=== PATIENT | female | born 1940 | race American Indian/Alaskan Native ===

== ENCOUNTER 2016-10-20 17:13 | Emergency (ER) | payer MEDICARE ==
[2016-10-20 17:25] VITALS: TEMP 98.4; O2SAT 98
--- NOTE | 2016-10-20 17:48 | ED PDOC ---
HPI: Hypertension/Hypotension Time Seen by Provider: 10/20/16 17:24 Chief Complaint (Nursing): High Blood Pressure History Per: Patient History/Exam Limitations: no limitations Onset/Duration Of Symptoms: Days Current Symptoms Are (Timing): Still Present Additional Complaint(s): 75 y/o female presents to the emergency department with a complaint of high blood pressure while at home. Associated with nasal congestion and a blurry vision which has resolved. Reports her blood pressure was 190/83 on both arms this morning and 160/85 by [address] March increased her Valsartan intake from 160 mg to 320 mg a couple of weeks ago while taking metoprolol and amlodipine. Denies chest pain or shortness of breath. PMD: Dr. Toi March MD Past Medical History Reviewed: Historical Data, Nursing Documentation, Vital Signs Vital Signs: Last Vital Signs Temp 98.4 F 10/20/16 17:22 Pulse 86 10/20/16 17:22 Resp 18 10/20/16 17:22 BP 163/81 H 10/20/16 17:22 Pulse Ox 98 10/20/16 17:22 - Medical History PMH: HTN - Family History Family History: States: Unknown Family Hx - Allergies Allergies/Adverse Reactions: Allergies Allergy/AdvReac Type Severity Reaction Status Date / Time No Known Allergies Allergy Unverified 01/30/13 12:08 Review of Systems ROS Statement: Except As Marked, All Systems Reviewed And Found Negative Constitutional: Positive for: Other (high blood pressure) Eyes: Positive for: Vision Change (Blurry) ENT: Positive for: Nose Congestion Cardiovascular: Negative for: Chest Pain Respiratory: Negative for: Shortness of Breath Physical Exam - Reviewed Nursing Documentation Reviewed: Yes Vital Signs Reviewed: Yes - Physical Exam Appears: Positive for: Non-toxic, No Acute Distress Head Exam: Positive for: ATRAUMATIC, NORMAL INSPECTION, NORMOCEPHALIC Skin: Positive for: Normal Color, Warm, Dry Eye Exam: Positive for: Normal appearance, EOMI, PERRL. Negative for: Conjunctival injection Neck: Positive for: Normal, Painless ROM, Supple Cardiovascular/Chest: Positive for: Regular Rate, Rhythm. Negative for: Murmur Respiratory: Positive for: Normal Breath Sounds. 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 Negative for: Motor/Sensory Deficits, Aphasia, Facial Droop - Laboratory Results Result Diagrams: 10/20/16 18:25 10/20/16 18:25 - ECG O2 Sat by Pulse Oximetry: 98 (RA) Pulse Ox Interpretation: Normal Medical Decision Making Medical Decision Making: Time: 17:24 Initial impression: High Blood Pressure Initial plan: --Electrocardiogram Stat --COMP Metabolic Panel --ED urine dipstick (POC) --EKG-ED (EDNURTX) --CBC w/ differential --Chest Two Views (RAD) --Urinalysis Stat --Revaluation Time: 18:45 --Upon discharge, pt states she now has frontal CHRIS, will order Tylenol and CT head. --Head w/o contrast CT --Tylenol 650 mg PO Time: 22:35 -Head CT FINDINGS: Brain: Mild atrophy. No intracranial hemorrhage. No mass. No definite edema. Ventricles: No hydrocephalus. Bones/joints: No acute fracture. Soft tissues: Unremarkable. Vasculature: Atherosclerotic disease of intracranial arteries. Sinuses: No acute sinusitis. Mastoid air cells: Partial opacification/postsurgical changes of LEFT mastoid. Orbits: Unremarkable as visualized. IMPRESSION: 1. No definite acute intracranial abnormality. 2. Incidental/non-acute findings are described above. Scribe Attestation: Documented by Nina Cohen, acting as a scribe for Carmella Peters MD. Provider Scribe Attestation: All medical record entries made by the Scribe were at my direction and personally dictated by me. I have reviewed the chart and agree that the record accurately reflects my personal performance of the history, physical exam, medical decision making, and the department course for this patient. I have also personally directed, reviewed, and agree with the discharge instructions and disposition. Disposition - Clinical Impression Clinical Impression: Hypertension - Patient ED Disposition Is Patient to be Admitted: No - Disposition Disposition: Routine/Home Disposition Time: 18:41 Condition: STABLE Additional Instructions: FOLLOW-UP WITH PMD WITHIN 2 DAYS FOR REEVALUATION. Instructions: Hypertension (ED)
[2016-10-20 18:28] LABS: RBC URINE 4 /hpf (0-3); URINE BACTERIA RARE (<OCC); URINE BILIRUBIN NEGATIVE (NEGATIVE); URINE COLOR YELLOW (YELLOW); URINE GLUCOSE (UA) NEG (Normal); URINE KETONE NEGATIVE (NEGATIVE); URINE LEUKOCYTE ESTERASE TRACE Leu/uL (Negative); URINE PROTEIN 100 mg/dL (NEGATIVE); URINE UROBILINOGEN 0.2-1.0 mg/dL (0.2-1.0); WBC URINE 4 /hpf (0-5)
[2016-10-20 18:29] LABS: URINE BLOOD SMALL (NEGATIVE)
[2016-10-20 18:29] LABS: BASO # 0.1 K/uL (0.0-0.2); BASO % 0.8 % (0.0-2.0); EOS # 0.1 K/uL (0.0-0.7); EOS % 0.9 % (0.0-4.0); HEMATOCRIT 39.6 % (34.0-47.0); LYMPH # 2.3 K/uL (1.0-4.3); LYMPH % 18.9 % (20.0-40.0); MEAN CELL VOLUME 77.2 fl (81.0-99.0); MEAN CORPUSCULAR HEMOGLOBIN 23.5 pg (27.0-31.0); MEAN CORPUSCULAR HGB CONC 30.5 g/dL (33.0-37.0); MONO # 1.1 K/uL (0.0-0.8); MONO % 9.2 % (0.0-10.0); NEUT # 8.6 K/uL (1.8-7.0); NEUT % 70.2 % (50.0-75.0); NRBC % 0.1 % (0.0-0.0); RED CELL DISTRIBUTION WIDTH 14.8 % (11.5-14.5); WHITE BLOOD COUNT 12.3 K/uL (4.8-10.8)
[2016-10-20 18:38] LABS: ALB/GLOB RATIO 1.4 (1.0-2.1); ALKALINE PHOSPHATASE 55 U/L (38-126); ALT/SGPT 53 U/L (9-52); AST/SGOT 36 U/L (14-36); BILIRUBIN,TOTAL 2.5 mg/dl (0.2-1.3); BLOOD UREA NITROGEN 25 mg/dl (7-17); CALCIUM 10.1 mg/dL (8.4-10.2); CARBON DIOXIDE 23 mmol/L (22-30); CHLORIDE 108 mmol/L (98-107); GFR AFRICAN-AMERICAN > 60; GLUCOSE,RANDOM 105 mg/dL (65-105); POTASSIUM 4.1 MMOL/L (3.6-5.0); SODIUM 145 mmol/l (132-148); TOTAL PROTEIN 8.1 G/DL (6.3-8.2)
[2016-10-20 19:36] VITALS: BP 147/77; PULSE 60; RESP 16
--- NOTE | 2016-10-20 22:36 | CT ---
EXAM: CT Head Without Intravenous Contrast CLINICAL HISTORY: 75 years old, female; Pain; Headache; Other: Perez's blurred vision nasal congestion; Patient HX: Perez's blurred vision nasal congestion. HTN. Tonsillectomy. Cholecystectomy TECHNIQUE: Axial computed tomography images of the head/brain without intravenous contrast. This CT exam was performed using one or more of the following dose reduction techniques: automated exposure control, adjustment of the mA and/or kV according to patient size, and/or use of iterative reconstruction technique. Coronal and sagittal reformatted images were created and reviewed. COMPARISON: No relevant prior studies available. FINDINGS: Brain: Mild atrophy. No intracranial hemorrhage. No mass. No definite edema. Ventricles: No hydrocephalus. Bones/joints: No acute fracture. Soft tissues: Unremarkable. Vasculature: Atherosclerotic disease of intracranial arteries. Sinuses: No acute sinusitis. Mastoid air cells: Partial opacification/postsurgical changes of LEFT mastoid. Orbits: Unremarkable as visualized. IMPRESSION: 1. No definite acute intracranial abnormality. 2. Incidental/non-acute findings are described above.
--- NOTE | 2016-10-21 11:17 | RAD ---
HISTORY: HTN COMPARISON: No prior. TECHNIQUE: Chest PA and lateral FINDINGS: LUNGS: No active pulmonary disease. PLEURA: No significant pleural effusion identified. No pneumothorax apparent. CARDIOVASCULAR: Normal. OSSEOUS STRUCTURES: No significant abnormalities. VISUALIZED UPPER ABDOMEN: Normal. OTHER FINDINGS: None. IMPRESSION: No active disease.
--- NOTE | 2016-10-21 14:49 | CARD ---
APPROVED REPORT EKG Measurement Heart [id number] MI 182P73 [id number] <Conclusion> Normal sinus rhythm Left axis deviation Left ventricular hypertrophy with QRS widening and repolarization abnormality Anteroseptal infarct, age undetermined Abnormal ECG
== END 2016-10-20 23:02 | disposition home or self-care (01) ==
LOC: H.ER 17:13 → MERGE 17:13 → H.ER 23:02
DX: I10 Essential (primary) hypertension (principal)

== ENCOUNTER 2016-11-29 16:50 | Emergency (ER) | payer MEDICARE ==
[2016-11-29 17:12] VITALS: BP 159/77; PULSE 79; RESP 18; TEMP 98.7; O2SAT 99
[2016-11-29] MEDS ORDERED: Sodium Chloride 0.9% 1,000 ML IV STA (17:46)
--- NOTE | 2016-11-29 17:57 | ED PDOC ---
HPI: General Adult Time Seen by Provider: 11/29/16 17:20 Chief Complaint (Nursing): ENT Problem Chief Complaint (Provider): Dry Mouth, Dehydrated, Itchy Skin History Per: Patient History/Exam Limitations: no limitations Have you had recent travel within the past 21 days to any of the following countries: [place], [place], [place] or [place]?: No Additional Complaint(s): Itzel Olivas, a 45 year old female, who has a past medical history of pancreatitis presents to the ED complaining of dry mouth, dehydration and itchy skin x7 days. The patient states that her dry mouth has gotten worse to the point where it alters the taste of her food. The patient states thats he is scheduled to have an endoscopy on December 14 and her last endoscopy was sometime within the last 5 years. She further states that she has been losing weight and has loss 12lbs in the past 1-2 months. Denies abdominal pain, fevers , chills, body aches, dizziness, headache, vision changes. Patient does state that she has had a few episodes of diarrhea and also has experienced some heart burn. PMD: Christopher Pérez ([facility]) Sessions Clerk: Samuel Dunlap Past Medical History Reviewed: Historical Data, Nursing Documentation, Vital Signs Vital Signs: Last Vital Signs Temp 98.7 F 11/29/16 17:09 Pulse 79 11/29/16 17:09 Resp 18 11/29/16 17:09 BP 159/77 H 11/29/16 17:09 Pulse Ox 99 11/29/16 19:48 - Medical History PMH: HTN, Pancreatitis Other PMH: Urinary Tract Infection, Acid Reflux - Surgical History Other surgeries: Ear surgery, Throat surgery - Family History Family History: States: Unknown Family Hx - Home Medications Home Medications: Ambulatory Orders Medication Instructions Recorded Ergocalciferol [Drisdol 50,000 50,000 units PO QWK 11/29/16 Intl Units Cap] Esomeprazole Magnesium [Nexium] 40 mg PO DAILY 11/29/16 Famotidine [Pepcid] 20 mg PO BID #16 tab 11/29/16 Metoprolol Succinate [Toprol Xl] 100 mg PO DAILY 11/29/16 Rosuvastatin Calcium [Crestor] 5 mg PO DAILY 11/29/16 Valsartan [Diovan] 160 mg PO DAILY 11/29/16 amLODIPine [Norvasc] 10 mg PO DAILY 11/29/16 - Allergies Allergies/Adverse Reactions: Allergies Allergy/AdvReac Type Severity Reaction Status Date / Time No Known Allergies Allergy Unverified 01/30/13 12:08 Review of Systems Constitutional: Positive for: Other (Dehydration). Negative for: Fever, Chills Eyes: Negative for: Vision Change ENT: Positive for: Other (Dry mouth) Gastrointestinal: Positive for: Diarrhea. Negative for: Abdominal Pain Skin: Positive for: Other (Dry and Itchy Skin) Neurological: Negative for: Headache, Dizziness Physical Exam - Reviewed Nursing Documentation Reviewed: Yes Vital Signs Reviewed: Yes - Physical Exam Appears: Positive for: Non-toxic, No Acute Distress Head Exam: Positive for: ATRAUMATIC, NORMAL INSPECTION, NORMOCEPHALIC Skin: Positive for: Normal Color (Skin with loss of turgor), Warm, Dry Eye Exam: Positive for: Normal appearance, EOMI, PERRL ENT: Positive for: TM Is/Are (TM's are normal; Ears are normal), Other (Moist mucous membranes;No cervical lymphadenopathy). Negative for: Pharyngeal Erythema Neck: Positive for: Normal, Painless ROM, Supple Cardiovascular/Chest: Positive for: Regular Rate, Rhythm, Chest Non Tender. Negative for: Tachycardia Respiratory: Positive for: Normal Breath Sounds. Negative for: Wheezing, Respiratory Distress Gastrointestinal/Abdominal: Positive for: Normal Exam, Bowel Sounds, Soft. Negative for: Tenderness Back: Positive for: Normal Inspection. Negative for: L CVA Tenderness, R CVA Tenderness Extremity: Positive for: Normal ROM, Capillary Refill (Slow capillary refills.) , Other (Good pulses bilaterally). Negative for: Tenderness, Pedal Edema, Deformity, Swelling Neurologic/Psych: Positive for: Alert, Oriented, Gait - Laboratory Results Result Diagrams: 11/29/16 17:55 11/29/16 17:55 - ECG ECG: Positive for: Viewed By Me ECG Rhythm: Positive for: Normal ST Segment, Sinus Rhythm Interpretation Of Abn EKG: left ventricular hypertrophy and wide QRS. unchanged from last EKG. O2 Sat by Pulse Oximetry: 99 (RA) Pulse Ox Interpretation: Normal Medical Decision Making Medical Decision Makin Initial Impression: 75 year old female presenting with dry mouth and Dry itchy skin Initial Plan: * Comp Metabolic Panel/ CBC- pt with hx of pancreatits-last ER visit showed slightly elevated WBC now lower than previous visit. BUN is elevated-indicated dehydration. remainder labs are stable. * NS 1000mls IV 1000mls/hr * Rapid Strep Group A * Reevaluation-pt feels somewhat improved. pt without acutely abnormal liver enzymes and no abd pain. * Pt will need f.u as outpt and have pmd evaluate pt further. pt is stable at this time for d/c Scribe Attestation Documented by Mai Rivas acting as a scribe for Annette Monsivais PA-C. Scribe Attestation All medical record entries made by the Scribe were at my direction and personally dictated by me. I have reviewed the chart and agree that the record accurately reflects my personal performance of the history, physical exam, medical decision making, and the department course for this patient. I have also personally directed, reviewed, and agree with the discharge instructions and disposition. Disposition - Clinical Impression Clinical Impression: Dry mouth, Acid reflux - Patient ED Disposition Is Patient to be Admitted: No Counseled Patient/Family Regarding: Studies Performed, Diagnosis, Need For Followup, Rx Given - Disposition Disposition: Routine/Home Disposition Time: 20:05 Condition: STABLE Prescriptions: Famotidine [Pepcid] 20 mg PO BID #16 tab Instructions: Dry Mouth (ED)
[2016-11-29 18:06] LABS: BASO # 0.1 K/uL (0.0-0.2); BASO % 0.7 % (0.0-2.0); EOS # 0.3 K/uL (0.0-0.7); EOS % 2.8 % (0.0-4.0); HEMOGLOBIN 11.7 g/dL (12.0-16.0); LYMPH # 2.5 K/uL (1.0-4.3); LYMPH % 20.3 % (20.0-40.0); MEAN CORPUSCULAR HEMOGLOBIN 23.5 pg (27.0-31.0); MEAN CORPUSCULAR HGB CONC 30.5 g/dL (33.0-37.0); MEAN PLATELET VOLUME 9.3 fl (7.2-11.7); MONO # 1.2 K/uL (0.0-0.8); MONO % 9.6 % (0.0-10.0); NEUT # 8.1 K/uL (1.8-7.0); NEUT % 66.6 % (50.0-75.0); NRBC % 0.1 % (0.0-0.0); RBC 4.98 Mil/uL (3.80-5.20); RED CELL DISTRIBUTION WIDTH 14.8 % (11.5-14.5); WHITE BLOOD COUNT 12.2 K/uL (4.8-10.8)
[2016-11-29 18:22] LABS: SQUAMOUS EPITHIAL < 1 /hpf (0-5); URINE BILIRUBIN NEGATIVE (NEGATIVE); URINE BLOOD NEGATIVE (NEGATIVE); URINE CLARITY CLEAR (Clear); URINE COLOR YELLOW (YELLOW); URINE GLUCOSE (UA) NEG (Normal); URINE LEUKOCYTE ESTERASE NEG Leu/uL (Negative); URINE NITRATE NEGATIVE (NEGATIVE); URINE PROTEIN 100 mg/dL (NEGATIVE); URINE UROBILINOGEN 0.2-1.0 mg/dL (0.2-1.0)
[2016-11-29 18:25] LABS: ALB/GLOB RATIO 1.6 (1.0-2.1); ALT/SGPT 53 U/L (9-52); AST/SGOT 33 U/L (14-36); BLOOD UREA NITROGEN 24 mg/dl (7-17); GFR AFRICAN-AMERICAN > 60; GFR NON-AFRICAN AMERICAN > 60
--- NOTE | 2016-11-29 21:14 | CT ---
EXAM: CT Abdomen and Pelvis Without Intravenous Contrast CLINICAL HISTORY: 75 years old, female; Signs and symptoms; Other: Cramping; Patient HX: HX of pancreatitis; Additional info: Vague abd cramping TECHNIQUE: Axial computed tomography images of the abdomen and pelvis without intravenous contrast. This CT exam was performed using one or more of the following dose reduction techniques: automated exposure control, adjustment of the mA and/or kV according to patient size, and/or use of iterative reconstruction technique. Coronal and sagittal reformatted images were created and reviewed. COMPARISON: No relevant prior studies available. FINDINGS: Limitations: Lack of intravenous contrast. Motion artifact - mild. Lower thorax: Coronary artery calcifications. LEFT lower lobe calcified granuloma. ABDOMEN: Liver: Unremarkable. Gallbladder and bile ducts: Cholecystectomy. No significant ductal dilation. Pancreas: Grossly unremarkable. No significant ductal dilation. Spleen: No splenomegaly. Adrenals: Mild hypertrophy of adrenal glands. Kidneys and ureters: Probable RIGHT renal cyst. Few subcentimeter slightly hyperdense lesions within RIGHT kidney, indeterminate by CT criteria. No renal calculi. No hydronephrosis. Stomach and bowel: Few scattered diverticula within colon. No associated inflammatory stranding. No definite mural thickening. No obstruction. Appendix: Normal caliber. No definite inflammation. PELVIS: Bladder: Unremarkable. No stones. Reproductive: Unremarkable as visualized. ABDOMEN and PELVIS: Intraperitoneal space: No significant fluid collection. No free air. Bones/joints: Bone island. No acute fracture. Soft tissues: Tiny umbilical hernia containing fat. Vasculature: Moderate atherosclerotic disease. No aneurysm. Lymph nodes: No pathologically enlarged lymph nodes. IMPRESSION: 1. Diverticulosis without definite CT evidence of diverticulitis. 2. Kidney lesions, indeterminate. Recommend nonemergent ultrasound or MRI. 3. Incidental/non-acute findings are described above.
--- NOTE | 2016-11-30 16:17 | CARD ---
APPROVED REPORT EKG Measurement Heart [id number] VT 182P80 [id number] <Conclusion> Normal sinus rhythm Left axis deviation Left ventricular hypertrophy with QRS widening and repolarization abnormality Anteroseptal infarct, age undetermined Abnormal ECG
== END 2016-11-29 22:29 | disposition home or self-care (01) ==
LOC: H.ER 16:50
DX: R68.2 Dry mouth, unspecified (principal); K21.9 Gastro-esophageal reflux disease without esophagitis; E86.0 Dehydration; I10 Essential (primary) hypertension; K57.90 Diverticulosis of intestine, part unspecified, without perforation or abscess without bleeding; K85.90 Acute pancreatitis without necrosis or infection, unspecified
CPT/HCPCS: 74176; 80053; 81003; 85025; 87070; 87430; 93005; 96360; 99282; J7040

== ENCOUNTER 2016-12-04 16:22 | Observation (INO) | payer MEDICARE ==
--- NOTE | 2016-12-04 17:32 | ED PDOC ---
HPI: Hypertension/Hypotension Time Seen by Provider: 12/04/16 17:31 Chief Complaint (Nursing): High Blood Pressure Chief Complaint (Provider): elevated bp History Per: Patient (75 y/o female h/o HTN states she has had noted elevated BP at home associated with abdominal "growling". States she has had intermittent chest pain with last episodes 4-5 days ago at last ED visit. Was seen and evaluated for dry mouth/elevated BP/abdominal pain and had CT of abdomen/pelvis at that time. Denies any vomiting/fevers/chills currently. Denies any personal h/o PA.) Past Medical History Reviewed: Historical Data, Nursing Documentation, Vital Signs Vital Signs: Last Vital Signs Temp 98.3 F 12/04/16 17:21 Pulse 70 12/04/16 17:21 Resp 18 12/04/16 17:21 BP 148/73 12/04/16 17:21 Pulse Ox 97 12/04/16 17:21 - Medical History PMH: HTN, Pancreatitis - Family History Family History: States: Unknown Family Hx - Home Medications Home Medications: Ambulatory Orders Medication Instructions Recorded Ergocalciferol [Drisdol 50,000 50,000 units PO QWK 11/29/16 Intl Units Cap] Esomeprazole Magnesium [Nexium] 40 mg PO DAILY 11/29/16 Famotidine [Pepcid] 20 mg PO BID #16 tab 11/29/16 Metoprolol Succinate [Toprol Xl] 100 mg PO DAILY 11/29/16 Rosuvastatin Calcium [Crestor] 5 mg PO DAILY 11/29/16 Valsartan [Diovan] 160 mg PO DAILY 11/29/16 amLODIPine [Norvasc] 10 mg PO DAILY 11/29/16 hydrOXYzine HCl [Atarax] 25 mg PO BID #10 tab 11/29/16 - Allergies Allergies/Adverse Reactions: Allergies Allergy/AdvReac Type Severity Reaction Status Date / Time No Known Allergies Allergy Unverified 01/30/13 12:08 Review of Systems ROS Statement: Except As Marked, All Systems Reviewed And Found Negative Physical Exam - Reviewed Nursing Documentation Reviewed: Yes Vital Signs Reviewed: Yes - Physical Exam Appears: Positive for: Well, Non-toxic, No Acute Distress Head Exam: Positive for: ATRAUMATIC, NORMAL INSPECTION, NORMOCEPHALIC Skin: Positive for: Normal Color, Warm, DRY Eye Exam: Positive for: EOMI, Normal appearance, PERRL ENT: Positive for: Normal ENT Inspection Neck: Positive for: Normal, Painless ROM Cardiovascular/Chest: Positive for: Regular Rate, Rhythm Respiratory: Positive for: CNT, Normal Breath Sounds Gastrointestinal/Abdominal: Positive for: Normal Exam, Bowel Sounds, Soft Back: Positive for: Normal Inspection Extremity: Positive for: Normal ROM Neurologic/Psych: Positive for: Alert, Oriented - Laboratory Results Result Diagrams: 12/04/16 17:56 12/04/16 17:56 - ECG ECG Rhythm: Positive for: Sinus Rhythm (nsr 60bpm no ectopy; no acute changes LBBB old seen on ekg 11/29/2016) O2 Sat by Pulse Oximetry: 97 Disposition - Clinical Impression Clinical Impression: Chest pain, Pancreatitis - Patient ED Disposition Is Patient to be Admitted: Yes - Disposition Disposition Time: 19:22 Condition: FAIR - Pt Status Changed To: Hospital Disposition Of: Inpatient - Admit Certification Admit to Inpatient:: After my assessment, the patient will require hospitalization for at least two midnights. This is because of the severity of symptoms shown, intensity of services needed, and/or the medical risk in this patient being treated as an outpatient.
[2016-12-04 18:07] LABS: BASO # 0.1 K/uL (0.0-0.2); BASO % 1.2 % (0.0-2.0); EOS # 0.3 K/uL (0.0-0.7); EOS % 2.8 % (0.0-4.0); HEMOGLOBIN 10.9 g/dL (12.0-16.0); LYMPH # 2.3 K/uL (1.0-4.3); LYMPH % 20.5 % (20.0-40.0); MEAN CELL VOLUME 77.1 fl (81.0-99.0); MEAN CORPUSCULAR HEMOGLOBIN 24.1 pg (27.0-31.0); MEAN CORPUSCULAR HGB CONC 31.2 g/dL (33.0-37.0); MEAN PLATELET VOLUME 9.2 fl (7.2-11.7); MONO # 1.1 K/uL (0.0-0.8); MONO % 10.2 % (0.0-10.0); NEUT # 7.3 K/uL (1.8-7.0); NEUT % 65.3 % (50.0-75.0); NRBC % 0.1 % (0.0-0.0); RBC 4.53 Mil/uL (3.80-5.20); RED CELL DISTRIBUTION WIDTH 14.6 % (11.5-14.5); WHITE BLOOD COUNT 11.1 K/uL (4.8-10.8)
[2016-12-04 18:16] LABS: ALB/GLOB RATIO 1.5 (1.0-2.1); ALBUMIN 4.6 g/dL (3.5-5.0); ALT/SGPT 46 U/L (9-52); AST/SGOT 27 U/L (14-36); BLOOD UREA NITROGEN 23 mg/dl (7-17); CALCIUM 9.9 mg/dL (8.4-10.2); GFR AFRICAN-AMERICAN 59; GFR NON-AFRICAN AMERICAN 49; LIPASE 486 U/L (23-300)
[2016-12-05] MEDS ORDERED: Ergocalciferol 50,000 Intl Units Cap PO SCH (00:15)
[2016-12-05] MEDS ORDERED: Sodium Chloride 0.9% 1,000 ML IV SCH (07:45)
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
[2016-12-05 08:36] VITALS: RESP 20
[2016-12-05] MEDS ORDERED: Pantoprazole 40 mg EC Tab PO SCH (09:00)
[2016-12-05] MEDS ORDERED: Enoxaparin 40 mg Syringe SC SCH (09:00)
[2016-12-05] MEDS ORDERED: Metoprolol Succinate 100 mg XL Tab PO SCH (09:00)
--- NOTE | 2016-12-05 10:48 | RAD ---
HISTORY: chest pain COMPARISON: Chest radiograph 11/05/2011. FINDINGS: LUNGS: No interval infiltrate or pleural effusion. PLEURA: No significant pleural effusion identified, no pneumothorax apparent. CARDIOVASCULAR: Normal. OSSEOUS STRUCTURES: No significant abnormalities. VISUALIZED UPPER ABDOMEN: Normal. OTHER FINDINGS: None. IMPRESSION: No interval acute cardiopulmonary disease.
--- NOTE | 2016-12-05 13:26 | CARD ---
APPROVED REPORT EKG Measurement Heart [id number] MA 196P78 [id number] <Conclusion> Normal sinus rhythm Possible Left atrial enlargement Left bundle branch block Abnormal ECG
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
[2016-12-05] MEDS ORDERED: Artificial Tears Opht Soln OU PRN (15:10)
--- NOTE | 2016-12-05 15:14 | CP.PCM.PCO ---
Assessment & Plan - Assessment and Plan (Free Text) Assessment: 75 yr old F with pmhx htn,hl, admitted with pancreatitis, cp currently doing well, denies sob, cp, abd pain, n/v/d pt. evaluated by and cleared by dr. Souza for f/u outpatient diet advanced from full liquid to bland if pt. able to tolerate bland diet, may be d/c today and f/u with ( GI ) outpatient
[2016-12-05 15:49] VITALS: BP 138/70; PULSE 58; TEMP 98.9; O2SAT 98
[2016-12-05] MEDS ORDERED: Bacitracin OINT 15GM TOP SCH (17:00)
== END 2016-12-05 18:30 | disposition home or self-care (01) ==
LOC: H.ER 16:22 → H.ERHOLD 19:15 → INTOOBSV 19:15 → H.TEL 23:19
PROVIDERS: ADMIT Internal Medicine; ATTEND Internal Medicine
DX: K44.9 Diaphragmatic hernia without obstruction or gangrene (principal); E78.00 Pure hypercholesterolemia, unspecified; I10 Essential (primary) hypertension; K21.9 Gastro-esophageal reflux disease without esophagitis; Z79.899 Other long term (current) drug therapy; Z90.49 Acquired absence of other specified parts of digestive tract; I95.9 Hypotension, unspecified; R07.89 Other chest pain; Z91.14 Patient's other noncompliance with medication regimen; E78.5 Hyperlipidemia, unspecified; E86.0 Dehydration
CPT/HCPCS: 36415; 71010; 80053; 80061; 82607; 83690; 84443; 84484; 85025; 93005; 99285; G0378; J1650; J7040

== ENCOUNTER 2016-12-24 00:30 | Emergency (ER) | payer MEDICARE ==
[2016-12-24 00:54] VITALS: BP 147/69; PULSE 74; RESP 76; TEMP 98.6; O2SAT 100
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
== END 2016-12-24 01:47 | disposition home or self-care (01) ==
LOC: H.ER 00:30
DX: T23.001A Burn of unspecified degree of right hand, unspecified site, initial encounter (principal); X12.XXXA Contact with other hot fluids, initial encounter; I10 Essential (primary) hypertension

== ENCOUNTER 2016-12-26 08:22 | Emergency (ER) | payer MEDICARE ==
[2016-12-26 08:27] VITALS: RESP 18; TEMP 97.3
[2016-12-26 08:28] VITALS: BMI 23.0
[2016-12-26] MEDS ORDERED: Sodium Chloride 0.9% 1,000 ML IV STA (08:57)
[2016-12-26 09:19] LABS: BASO # 0.1 K/uL (0.0-0.2); BASO % 1.3 % (0.0-2.0); EOS # 0.2 K/uL (0.0-0.7); EOS % 1.6 % (0.0-4.0); HEMOGLOBIN 11.3 g/dL (12.0-16.0); LYMPH # 3.1 K/uL (1.0-4.3); LYMPH % 28.9 % (20.0-40.0); MEAN CELL VOLUME 77.6 fl (81.0-99.0); MEAN CORPUSCULAR HEMOGLOBIN 24.1 pg (27.0-31.0); MEAN PLATELET VOLUME 9.3 fl (7.2-11.7); MONO % 9.1 % (0.0-10.0); NEUT # 6.3 K/uL (1.8-7.0); NEUT % 59.1 % (50.0-75.0); NRBC % 0.1 % (0.0-0.0); RBC 4.68 Mil/uL (3.80-5.20); RED CELL DISTRIBUTION WIDTH 14.8 % (11.5-14.5); WHITE BLOOD COUNT 10.6 K/uL (4.8-10.8)
[2016-12-26 09:30] LABS: ALB/GLOB RATIO 1.4 (1.0-2.1); ALBUMIN 4.6 g/dL (3.5-5.0); ALT/SGPT 60 U/L (9-52); AST/SGOT 36 U/L (14-36); BLOOD UREA NITROGEN 26 mg/dl (7-17); CALCIUM 9.6 mg/dL (8.4-10.2); GFR AFRICAN-AMERICAN > 60; GFR NON-AFRICAN AMERICAN > 60; LIPASE 418 U/L (23-300)
--- NOTE | 2016-12-26 09:37 | ED PDOC ---
HPI: General Adult Time Seen by Provider: 12/26/16 08:30 Chief Complaint (Nursing): Weakness/Neurological Deficit Chief Complaint (Provider): Weakness/Neurological Deficit History Per: Patient History/Exam Limitations: no limitations Additional History Per: Family (daughter) Additional Complaint(s): Itzel Olivas is a 76 year old female with a past medical history of hypertension and pancreatitis presenting to the ED accompanied by her daughter for an evaluation of intermittent chronic dehydration, weakness, nausea, light- headedness, dizziness, chest heaviness and acid reflux occurring for 1 month prior to arrival. The patient reports associated decreased appetite and weight loss. She states she was last seen in this emergency room on Saturday and received blood work during her visit. She also reports having an endoscopy completed last Saturday by Dr. Samuel Dunlap, [employer]ting [employer]. She denies fever chills, dysuria, diarrhea, vomiting, or abdominal pain. PMD: None Provided Past Medical History Reviewed: Historical Data, Nursing Documentation, Vital Signs Vital Signs: Last Vital Signs Temp 97.3 F L 12/26/16 08:26 Pulse 72 12/26/16 08:26 Resp 18 12/26/16 08:26 BP 154/77 H 12/26/16 08:26 Pulse Ox 100 12/26/16 09:41 - Medical History PMH: HTN, Pancreatitis Denies: Hypercholesterolemia, Chronic Kidney Disease - Surgical History Surgical History: Cholecystectomy, Tonsillectomy - Family History Family History: States: Unknown Family Hx - Home Medications Home Medications: Ambulatory Orders Medication Instructions Recorded Ergocalciferol [Drisdol 50,000 50,000 units PO QWK 11/29/16 Intl Units Cap] Esomeprazole Magnesium [Nexium] 40 mg PO DAILY 11/29/16 Metoprolol Succinate [Toprol Xl] 100 mg PO DAILY 11/29/16 Rosuvastatin Calcium [Crestor] 5 mg PO DAILY 11/29/16 Valsartan [Diovan] 160 mg PO DAILY 11/29/16 amLODIPine [Norvasc] 10 mg PO DAILY 11/29/16 hydrOXYzine HCl [Atarax] 25 mg PO BID #10 tab 11/29/16 Ranitidine HCl [Zantac] 150 mg PO DAILY #30 tablet 12/05/16 - Allergies Allergies/Adverse Reactions: Allergies Allergy/AdvReac Type Severity Reaction Status Date / Time No Known Allergies Allergy Unverified 01/30/13 12:08 Review of Systems ROS Statement: Except As Marked, All Systems Reviewed And Found Negative Constitutional: Positive for: Weakness, Weight loss (and decreased appetite ), Other (dehydration). Negative for: Fever, Chills Cardiovascular: Positive for: Light Headedness, Other (chest heaviness ) Gastrointestinal: Positive for: Nausea. Negative for: Vomiting, Abdominal Pain , Diarrhea Genitourinary Female: Negative for: Dysuria Neurological: Positive for: Dizziness Physical Exam - Reviewed Nursing Documentation Reviewed: Yes Vital Signs Reviewed: Yes - Physical Exam Appears: Positive for: Well, Non-toxic, No Acute Distress Head Exam: Positive for: ATRAUMATIC, NORMAL INSPECTION, NORMOCEPHALIC Skin: Positive for: Normal Color, Warm, Dry Cardiovascular/Chest: Positive for: Regular Rate, Rhythm, Chest Non Tender Respiratory: Positive for: Normal Breath Sounds. Negative for: Respiratory Distress Gastrointestinal/Abdominal: Positive for: Normal Exam, Bowel Sounds, Soft. Negative for: Tenderness Neurologic/Psych: Positive for: Alert, Oriented - Laboratory Results Result Diagrams: 12/26/16 09:14 12/26/16 09:14 - ECG O2 Sat by Pulse Oximetry: 100 (RA) Pulse Ox Interpretation: Normal Medical Decision Making Medical Decision Makin:30 Impression: Weakness/dehydration Plan: * Ed ekg * Comp metabolic panel * Lipase * Troponin I * CBC (With Differential) * NS 1,000 mls/hr IV * Reevaluation Scribe Attestation: Documented by Misti Freeman, acting as a scribe for Windy Hanks MD. Provider Scribe Attestation: All medical record entries made by the Scribe were at my direction and personally dictated by me. I have reviewed the chart and agree that the record accurately reflects my personal performance of the history, physical exam, medical decision making, and the department course for this patient. I have also personally directed, reviewed, and agree with the discharge instructions and disposition. patient feeling okay. still feels weak and dehydrated. Daughter states what she has an appointment with Dr. Dunlap tomorrow. Disposition - Clinical Impression Clinical Impression: Generalized weakness - Patient ED Disposition Is Patient to be Admitted: No Doctor Will See Patient In The: Office Counseled Patient/Family Regarding: Diagnosis, Need For Followup - Disposition Referrals: Samuel Dunlap MD [Medical Doctor] - Toi March MD [Staff Provider] - Disposition: Routine/Home Disposition Time: 11:15 Condition: STABLE Instructions: Weakness (ED) Forms: [facility] (Ivorian) - POA Present On Arrival: None
--- NOTE | 2016-12-26 11:39 | CARD ---
APPROVED REPORT EKG Measurement Heart [id number] <Conclusion> Normal sinus rhythm Left axis deviation Left bundle branch block Abnormal ECG
[2016-12-26 12:11] VITALS: BP 142/76; PULSE 78; O2SAT 99
== END 2016-12-26 12:11 | disposition home or self-care (01) ==
LOC: H.ER 08:22
DX: R53.1 Weakness (principal); I10 Essential (primary) hypertension; K85.90 Acute pancreatitis without necrosis or infection, unspecified
CPT/HCPCS: 80053; 83690; 84484; 85025; 93005; 96360; 99283; J7040

== ENCOUNTER 2016-12-27 17:54 | Emergency (ER) | payer MEDICARE ==
[2016-12-27 17:54] VITALS: BMI 23.0
[2016-12-27 18:02] VITALS: PULSE 69; RESP 16; TEMP 98.2; O2SAT 99
--- NOTE | 2016-12-27 20:17 | CT ---
EXAM: CT Head Without Intravenous Contrast CLINICAL HISTORY: 76 years old, female; Signs and symptoms; Other: Poss high blood pressure; Prior surgery; Surgery date: 6+ months; Surgery type: Left ear as a teenager; Additional info: HTN TECHNIQUE: Axial computed tomography images of the head/brain without intravenous contrast. All CT scans at this facility use one or more dose reduction techniques, viz.: automated exposure control; ma/kV adjustment per patient size (including targeted exams where dose is matched to indication; i.e. head); or iterative reconstruction technique. Coronal and sagittal reformatted images were created and reviewed. COMPARISON: CT HEAD W/O CONT 08/12/2011 2:51:38 PM FINDINGS: Brain: Bilateral white matter hypoattenuation most consistent with chronic ischemic small vessel changes. Vascular calcification. No hemorrhage. No edema. Ventricles: No hydrocephalus. Bones: Skull is intact. Sinuses: No acute sinusitis. Right frontal sinus osteoma. Mastoid air cells: Partial opacification of left mastoid air cells. Evidence of prior left mastoidectomy. IMPRESSION: No CT evidence of acute intracranial abnormality. Evidence of chronic ischemic small vessel changes. Partial opacification of left mastoid air cells. Evidence of prior left mastoidectomy. Additional details/findings as above. Correlate clinically. Followup as warranted.
--- NOTE | 2016-12-27 20:37 | ED PDOC ---
HPI: Hypertension/Hypotension Time Seen by Provider: 12/27/16 18:35 Chief Complaint (Nursing): High Blood Pressure Chief Complaint (Provider): High Blood Pressure History Per: Patient History/Exam Limitations: no limitations Onset/Duration Of Symptoms: Hrs (x1 hour) Current Symptoms Are (Timing): Still Present Associated Symptoms: denies: Chest Pain, Dizziness Additional Complaint(s): Itzel Olivas, a 76 year old female, presents to the ED with high blood pressure. The patient states that her last recorded pressure was 170 systolic within the last hour. Denies chest pain, abdominal pain, short of breath, dizziness. Past Medical History Reviewed: Historical Data, Nursing Documentation, Vital Signs Vital Signs: Last Vital Signs Temp 98.2 F 12/27/16 18:00 Pulse 69 12/27/16 18:00 Resp 16 12/27/16 18:00 BP 151/71 H 12/27/16 18:00 Pulse Ox 99 12/27/16 18:00 - Medical History PMH: HTN, Pancreatitis Denies: Hypercholesterolemia, Chronic Kidney Disease - Surgical History Surgical History: Cholecystectomy, Tonsillectomy - Family History Family History: States: Unknown Family Hx - Social History Current smoker - smoking cessation education provided: No Alcohol: None Drugs: Denies - Home Medications Home Medications: Ambulatory Orders Medication Instructions Recorded Ergocalciferol [Drisdol 50,000 50,000 units PO QWK 11/29/16 Intl Units Cap] Esomeprazole Magnesium [Nexium] 40 mg PO DAILY 11/29/16 Metoprolol Succinate [Toprol Xl] 100 mg PO DAILY 11/29/16 Rosuvastatin Calcium [Crestor] 5 mg PO DAILY 11/29/16 Valsartan [Diovan] 160 mg PO DAILY 11/29/16 amLODIPine [Norvasc] 10 mg PO DAILY 11/29/16 hydrOXYzine HCl [Atarax] 25 mg PO BID #10 tab 11/29/16 Ranitidine HCl [Zantac] 150 mg PO DAILY #30 tablet 12/05/16 Amoxicillin/Clavulanate [Augmentin 1 tab PO BID #14 tab 12/27/16 875 MG-125 MG] - Allergies Allergies/Adverse Reactions: Allergies Allergy/AdvReac Type Severity Reaction Status Date / Time No Known Allergies Allergy Verified 12/27/16 17:59 Review of Systems ROS Statement: Except As Marked, All Systems Reviewed And Found Negative Cardiovascular: Positive for: Other (Hypertension). Negative for: Chest Pain Respiratory: Negative for: Shortness of Breath Gastrointestinal: Negative for: Abdominal Pain Neurological: Negative for: Dizziness Physical Exam - Reviewed Nursing Documentation Reviewed: Yes Vital Signs Reviewed: Yes - Physical Exam Appears: Positive for: Non-toxic, No Acute Distress Head Exam: Positive for: ATRAUMATIC, NORMAL INSPECTION, NORMOCEPHALIC Skin: Positive for: Normal Color, Warm, Dry. Negative for: Rash Neck: Positive for: Normal, Painless ROM, Supple Cardiovascular/Chest: Positive for: Regular Rate, Rhythm, Chest Non Tender. Negative for: Murmur, Tachycardia Respiratory: Positive for: Normal Breath Sounds. Negative for: Rales, Rhonchi, Wheezing, Respiratory Distress Gastrointestinal/Abdominal: Positive for: Bowel Sounds, Soft. Negative for: Tenderness, Mass, Guarding, Rebound Back: Positive for: Normal Inspection. Negative for: L CVA Tenderness, R CVA Tenderness, Vertebral Tenderness Extremity: Positive for: Normal ROM. Negative for: Tenderness, Pedal Edema, Calf Tenderness, Deformity, Swelling Neurologic/Psych: Positive for: Alert, medical front desk coordinator II-XII (Cranial nerves intact), Oriented, Cerebellar Tests (Cerebellar tests normal), Gait. Negative for: Motor /Sensory Deficits, Aphasia, Facial Droop - Laboratory Results Result Diagrams: 12/27/16 21:25 12/27/16 21:25 - ECG O2 Sat by Pulse Oximetry: 99 (RA) Pulse Ox Interpretation: Normal Medical Decision Making Medical Decision Makin Initial Impression: 76 year old female presenting with hypertension, acute on chronic, no chest pain Initial Plan: * CT Head w/o contrast * EKG * Comp Metabolic Panel * CBC * Reevaluation 2017 EXAM: CT Head Without Intravenous Contrast CLINICAL HISTORY: 76 years old, female; Signs and symptoms; Other: Poss high blood pressure; Prior surgery; Surgery date: 6+ months; Surgery type: Left ear as a teenager; Additional info: HTN TECHNIQUE: Axial computed tomography images of the head/brain without intravenous contrast. All CT scans at this facility use one or more dose reduction techniques, viz.: automated exposure control; ma/kV adjustment per patient size (including targeted exams where dose is matched to indication; i.e. head); or iterative reconstruction technique. Coronal and sagittal reformatted images were created and reviewed. COMPARISON: CT HEAD W/O CONT 08/12/2011 2:51:38 PM FINDINGS: Brain: Bilateral white matter hypoattenuation most consistent with chronic ischemic small vessel changes. Vascular calcification. No hemorrhage. No edema. Ventricles: No hydrocephalus. Bones: Skull is intact. Sinuses: No acute sinusitis. Right frontal sinus osteoma. Mastoid air cells: Partial opacification of left mastoid air cells. Evidence of prior left mastoidectomy. IMPRESSION: No CT evidence of acute intracranial abnormality. Evidence of chronic ischemic small vessel changes. Partial opacification of left mastoid air cells. Evidence of prior left mastoidectomy. Additional details/findings as above. Correlate clinically. Followup as warranted. 2200 Patient noted eating dinner in no distress. Given CT finding of sinusitis, will treat with augmentin and have patient follow up for bp check with PMD in 1-2 days. Scribe Attestation Documented by Mai Rivas acting as a scribe for Marii Redman MD. Provider Attestation All medical record entries made by the Scribe were at my direction and personally dictated by me. I have reviewed the chart and agree that the record accurately reflects my personal performance of the history, physical exam, medical decision making, and the department course for this patient. I have also personally directed, reviewed, and agree with the discharge instructions and disposition. Disposition - Clinical Impression Clinical Impression: Sinusitis, Hypertension - Patient ED Disposition Is Patient to be Admitted: No Counseled Patient/Family Regarding: Studies Performed, Diagnosis, Need For Followup - Disposition Disposition: Routine/Home Disposition Time: 21:10 Condition: IMPROVED Additional Instructions: follow up with your primary doctor tomorrow for blood pressure follow up return to the ED with any worsening or concerning symptoms Prescriptions: Amoxicillin/Clavulanate [Augmentin 875 MG-125 MG] 1 tab PO BID #14 tab Instructions: Sinusitis (ED), Hypertension (ED) Forms: [facility] (Turkmen)
[2016-12-27 21:33] LABS: BASO # 0.1 K/uL (0.0-0.2); EOS # 0.2 K/uL (0.0-0.7); EOS % 2.1 % (0.0-4.0); HEMOGLOBIN 11.2 g/dL (12.0-16.0); LYMPH # 2.9 K/uL (1.0-4.3); LYMPH % 30.4 % (20.0-40.0); MEAN CELL VOLUME 77.2 fl (81.0-99.0); MEAN CORPUSCULAR HEMOGLOBIN 24.3 pg (27.0-31.0); MEAN CORPUSCULAR HGB CONC 31.4 g/dL (33.0-37.0); MEAN PLATELET VOLUME 9.3 fl (7.2-11.7); MONO % 10.4 % (0.0-10.0); NEUT # 5.4 K/uL (1.8-7.0); NEUT % 56.1 % (50.0-75.0); NRBC % 0.1 % (0.0-0.0); RBC 4.61 Mil/uL (3.80-5.20); RED CELL DISTRIBUTION WIDTH 14.8 % (11.5-14.5); WHITE BLOOD COUNT 9.6 K/uL (4.8-10.8)
[2016-12-27 21:59] LABS: ALB/GLOB RATIO 1.4 (1.0-2.1); ALBUMIN 4.2 g/dL (3.5-5.0); ALT/SGPT 45 U/L (9-52); AST/SGOT 38 U/L (14-36); BLOOD UREA NITROGEN 22 mg/dl (7-17); CALCIUM 9.5 mg/dL (8.4-10.2); GFR AFRICAN-AMERICAN > 60; GFR NON-AFRICAN AMERICAN > 60
[2016-12-27 23:11] VITALS: BP 149/81
--- NOTE | 2016-12-28 10:39 | CARD ---
APPROVED REPORT EKG Measurement Heart [id number] <Conclusion> Sinus bradycardia with 1st degree AV block Left axis deviation Left bundle branch block Abnormal ECG
== END 2016-12-27 23:07 | disposition home or self-care (01) ==
LOC: H.ER 17:54
DX: I10 Essential (primary) hypertension (principal); J32.9 Chronic sinusitis, unspecified; K85.90 Acute pancreatitis without necrosis or infection, unspecified

== ENCOUNTER 2016-12-28 16:22 | Emergency (ER) | payer MEDICARE ==
[2016-12-28 16:23] VITALS: BMI 23.0
[2016-12-28] MEDS ORDERED: Sodium Chloride 0.9% 1,000 ML IV STA (16:54)
--- NOTE | 2016-12-28 17:13 | ED PDOC ---
HPI: General Adult Time Seen by Provider: 12/28/16 16:37 Chief Complaint (Nursing): Medical Clearance Chief Complaint (Provider): Lip Burning, Leg Burning, Chest Heaviness, Nausea History Per: Patient History/Exam Limitations: no limitations Have you had recent travel within the past 21 days to any of the following countries: [place], [place], [place] or [place]?: No Additional Complaint(s): Itzel Olivas, a 76 year old female, presents to the ED complaining of lip burning, leg burning, diarrhea and chest heaviness. The patient she has had the same ongoing problem for a few months.The patient states that she had tests done in the past but the all turned out to be normal. Patient also notes some nausea and loss of appetite. Past Medical History Reviewed: Historical Data, Nursing Documentation, Vital Signs Vital Signs: Last Vital Signs Temp 98.7 F 12/28/16 16:32 Pulse 71 12/28/16 16:32 Resp 18 12/28/16 16:32 BP 160/75 H 12/28/16 16:32 Pulse Ox 99 12/28/16 18:11 - Medical History PMH: HTN, Pancreatitis Denies: Hypercholesterolemia, Chronic Kidney Disease - Surgical History Surgical History: Cholecystectomy, Tonsillectomy - Family History Family History: States: Unknown Family Hx - Social History Current smoker - smoking cessation education provided: No Alcohol: None Drugs: Denies - Home Medications Home Medications: Ambulatory Orders Medication Instructions Recorded Ergocalciferol [Drisdol 50,000 50,000 units PO QWK 11/29/16 Intl Units Cap] Esomeprazole Magnesium [Nexium] 40 mg PO DAILY 11/29/16 Metoprolol Succinate [Toprol Xl] 100 mg PO DAILY 11/29/16 Rosuvastatin Calcium [Crestor] 5 mg PO DAILY 11/29/16 Valsartan [Diovan] 160 mg PO DAILY 11/29/16 amLODIPine [Norvasc] 10 mg PO DAILY 11/29/16 hydrOXYzine HCl [Atarax] 25 mg PO BID #10 tab 11/29/16 Ranitidine HCl [Zantac] 150 mg PO DAILY #30 tablet 12/05/16 Amoxicillin/Clavulanate [Augmentin 1 tab PO BID #14 tab 12/27/16 875 MG-125 MG] - Allergies Allergies/Adverse Reactions: Allergies Allergy/AdvReac Type Severity Reaction Status Date / Time No Known Allergies Allergy Verified 12/27/16 17:59 Review of Systems ROS Statement: Except As Marked, All Systems Reviewed And Found Negative Constitutional: Positive for: Other (Dehydration) ENT: Positive for: Other (Lip burning) Cardiovascular: Negative for: Chest Pain (chest heaviness) Gastrointestinal: Positive for: Nausea, Diarrhea Musculoskeletal: Positive for: Other (Leg burning) Physical Exam - Reviewed Nursing Documentation Reviewed: Yes Vital Signs Reviewed: Yes - Physical Exam Appears: Positive for: Non-toxic, No Acute Distress Head Exam: Positive for: ATRAUMATIC, NORMAL INSPECTION, NORMOCEPHALIC Skin: Positive for: Normal Color, Warm, Dry. Negative for: Rash Eye Exam: Positive for: Normal appearance, EOMI, PERRL ENT: Positive for: Normal ENT Inspection Neck: Positive for: Normal, Painless ROM, Supple Cardiovascular/Chest: Positive for: Regular Rate, Rhythm, Chest Non Tender. Negative for: Murmur, Tachycardia Respiratory: Positive for: Normal Breath Sounds. Negative for: Rales, Rhonchi, Wheezing, Respiratory Distress Gastrointestinal/Abdominal: Positive for: Normal Exam, Bowel Sounds, Soft. Negative for: Tenderness, Mass, Guarding, Rebound Back: Positive for: Normal Inspection. Negative for: L CVA Tenderness, R CVA Tenderness Extremity: Positive for: Normal ROM. Negative for: Tenderness, Pedal Edema, Deformity, Swelling Neurologic/Psych: Positive for: Alert, Oriented, Gait. Negative for: Motor/ Sensory Deficits, Facial Droop - Laboratory Results Result Diagrams: 12/28/16 17:56 12/28/16 17:56 - ECG O2 Sat by Pulse Oximetry: 99 (RA) Pulse Ox Interpretation: Normal Medical Decision Making Medical Decision Makin Initial Impression: 76 year old presenting with lip burning, leg burning and chest heaviness Initial Plan: * EKG * Comp Metabolic Panel * Magnesium * Troponin * [id number] * CBC * Erythrocyte * Sedimentation rate * NS 1000mls IV 1000mls/hr * Urinalysis-shows mild dehydration. * Reevaluation * crisis evaluation-states to crisis that her mother passes away in July of 2016 and now she has increased free time. Pt admits she used to spend most of her time with her mother. pt agrees with grief counseling. * pt advised to f.u with pmd upon return otherwise to f.u at clinic moving forward for chronic medical care. * and to drink plenty of fluids. Scribe Attestation Documented by Mai Rivas acting as a scribe for Annette Monsivais PA-C. Scribe Attestation All medical record entries made by the Scribe were at my direction and personally dictated by me. I have reviewed the chart and agree that the record accurately reflects my personal performance of the history, physical exam, medical decision making, and the department course for this patient. I have also personally directed, reviewed, and agree with the discharge instructions and disposition. Disposition - Clinical Impression Clinical Impression: Acid reflux, Dehydration - Patient ED Disposition Is Patient to be Admitted: No Counseled Patient/Family Regarding: Studies Performed, Diagnosis, Need For Followup - Disposition Referrals: [facility] [Outside] Disposition: Routine/Home Disposition Time: 18:49 Condition: STABLE Instructions: Diet for Ulcers and Gastritis (ED) Forms: [facility] (Yi)
[2016-12-28 18:04] LABS: BASO % 0.3 % (0.0-2.0); EOS # 0.1 K/uL (0.0-0.7); EOS % 1.2 % (0.0-4.0); HEMOGLOBIN 11.6 g/dL (12.0-16.0); LYMPH # 2.4 K/uL (1.0-4.3); LYMPH % 22.5 % (20.0-40.0); MEAN CELL VOLUME 77.7 fl (81.0-99.0); MEAN CORPUSCULAR HEMOGLOBIN 24.2 pg (27.0-31.0); MEAN CORPUSCULAR HGB CONC 31.1 g/dL (33.0-37.0); MEAN PLATELET VOLUME 9.3 fl (7.2-11.7); MONO # 1.2 K/uL (0.0-0.8); MONO % 11.4 % (0.0-10.0); NEUT # 6.9 K/uL (1.8-7.0); NEUT % 64.6 % (50.0-75.0); NRBC % 0.1 % (0.0-0.0); RBC 4.78 Mil/uL (3.80-5.20); RED CELL DISTRIBUTION WIDTH 15.4 % (11.5-14.5); WHITE BLOOD COUNT 10.7 K/uL (4.8-10.8)
[2016-12-28 18:14] LABS: ALB/GLOB RATIO 1.4 (1.0-2.1); ALBUMIN 4.5 g/dL (3.5-5.0); ALT/SGPT 52 U/L (9-52); AST/SGOT 26 U/L (14-36); BLOOD UREA NITROGEN 14 mg/dl (7-17); CALCIUM 9.6 mg/dL (8.4-10.2); GFR AFRICAN-AMERICAN > 60; GFR NON-AFRICAN AMERICAN > 60; MAGNESIUM 1.8 MG/DL (1.6-2.3)
[2016-12-28 18:20] LABS: SQUAMOUS EPITHIAL < 1 /hpf (0-5); URINE BILIRUBIN NEGATIVE (NEGATIVE); URINE BLOOD NEGATIVE (NEGATIVE); URINE CLARITY CLEAR (Clear); URINE COLOR STRAW (YELLOW); URINE GLUCOSE (UA) NEG (Normal); URINE LEUKOCYTE ESTERASE TRACE Leu/uL (Negative); URINE NITRATE NEGATIVE (NEGATIVE); URINE PROTEIN 30 mg/dL (NEGATIVE); URINE UROBILINOGEN 0.2-1.0 mg/dL (0.2-1.0)
[2016-12-28 19:18] VITALS: BP 149/84; PULSE 83; RESP 16; TEMP 98.6; O2SAT 100
--- NOTE | 2016-12-29 09:54 | CARD ---
APPROVED REPORT EKG Measurement Heart [id number] NH [id number] <Conclusion> Sinus bradycardia Incomplete LBBB ?? Septal infarct, age undetermined Abnormal ECG
== END 2016-12-28 19:17 | disposition home or self-care (01) ==
LOC: H.ER 16:22
DX: K21.9 Gastro-esophageal reflux disease without esophagitis (principal); K85.90 Acute pancreatitis without necrosis or infection, unspecified; E86.0 Dehydration; I10 Essential (primary) hypertension
CPT/HCPCS: 80053; 81003; 82607; 83735; 84484; 85025; 85651; 93005; 96360; 96361; 99281; J7040

== ENCOUNTER 2017-01-23 12:52 | Emergency (ER) | payer MEDICARE ==
[2017-01-23 12:53] VITALS: BMI 23.0
[2017-01-23 12:57] VITALS: RESP 16; TEMP 97.9
[2017-01-23] MEDS ORDERED: Sodium Chloride 0.9% 500 ML IV STA (13:36)
--- NOTE | 2017-01-23 14:12 | ED PDOC ---
HPI: General Adult Time Seen by Provider: 01/23/17 13:06 Chief Complaint (Nursing): Weakness/Neurological Deficit Chief Complaint (Provider): Generalized weakness History Per: Patient History/Exam Limitations: no limitations Onset/Duration Of Symptoms: Other (Chronic) Additional Complaint(s): Patient is a 76 y/o female with a past medical history of hypertension and gastritis presenting to the emergency department for chronic generalized weakness, fatigue, and dehydration but denies any specific, acute complaints. Also notes chronic and intermittent diarrhea. Denies chest, fever, shortness of breath, vomiting, or other complaints. PCP: none provided. Past Medical History Reviewed: Historical Data, Nursing Documentation, Vital Signs Vital Signs: Last Vital Signs Temp 97.9 F 01/23/17 12:55 Pulse 61 01/23/17 18:39 Resp 16 01/23/17 16:00 BP 142/74 01/23/17 16:00 Pulse Ox 98 01/23/17 18:39 - Medical History PMH: HTN, Pancreatitis Denies: Diabetes, Hepatitis, HIV, Hypercholesterolemia, Chronic Kidney Disease, Seizures, Sexually Transmitted Disease - Surgical History Surgical History: Cholecystectomy, Tonsillectomy - Family History Family History: States: Unknown Family Hx - Social History Current smoker - smoking cessation education provided: No Ex-Smoker (has not smoked in the last 12 months): No Alcohol: None Drugs: Denies - Home Medications Home Medications: Ambulatory Orders Medication Instructions Recorded Ergocalciferol [Drisdol 50,000 50,000 units PO QWK 11/29/16 Intl Units Cap] Esomeprazole Magnesium [Nexium] 40 mg PO DAILY 11/29/16 Metoprolol Succinate [Toprol Xl] 100 mg PO DAILY 11/29/16 Rosuvastatin Calcium [Crestor] 5 mg PO DAILY 11/29/16 Valsartan [Diovan] 160 mg PO DAILY 11/29/16 amLODIPine [Norvasc] 10 mg PO DAILY 11/29/16 hydrOXYzine HCl [Atarax] 25 mg PO BID #10 tab 11/29/16 Ranitidine HCl [Zantac] 150 mg PO DAILY #30 tablet 12/05/16 Amoxicillin/Clavulanate [Augmentin 1 tab PO BID #14 tab 12/27/16 875 MG-125 MG] - Allergies Allergies/Adverse Reactions: Allergies Allergy/AdvReac Type Severity Reaction Status Date / Time No Known Allergies Allergy Verified 01/23/17 12:55 Review of Systems ROS Statement: Except As Marked, All Systems Reviewed And Found Negative Constitutional: Positive for: Weakness (generalized, chronic), Other (chronic fatigue and dehydration). Negative for: Fever Cardiovascular: Negative for: Chest Pain Respiratory: Negative for: Shortness of Breath Gastrointestinal: Positive for: Diarrhea (chronic). Negative for: Vomiting Physical Exam - Reviewed Nursing Documentation Reviewed: Yes Vital Signs Reviewed: Yes - Physical Exam Appears: Positive for: Well, Non-toxic, No Acute Distress Head Exam: Positive for: ATRAUMATIC, NORMAL INSPECTION, NORMOCEPHALIC Skin: Positive for: Normal Color, Warm, Dry Eye Exam: Positive for: Normal appearance Neck: Positive for: Normal, Painless ROM, Supple Cardiovascular/Chest: Positive for: Regular Rate, Rhythm Respiratory: Positive for: Normal Breath Sounds. Negative for: Accessory Muscle Use, Respiratory Distress Gastrointestinal/Abdominal: Positive for: Normal Exam, Soft. Negative for: Tenderness Back: Positive for: Normal Inspection. Negative for: L CVA Tenderness, R CVA Tenderness Extremity: Positive for: Normal ROM. Negative for: Pedal Edema Neurologic/Psych: Positive for: Alert, Oriented (x3) - Laboratory Results Result Diagrams: 01/23/17 14:13 01/23/17 14:13 - ECG ECG Rhythm: Positive for: Sinus Rhythm. Negative for: ST/T Changes Interpretation Of Abn EKG: LVH is present. Q-waves inferior and anterior leads. Rate: 61 O2 Sat by Pulse Oximetry: 98 (RA) Medical Decision Making Medical Decision Making: Time: 13:35 Initial impression: Generalized weakness Differential diagnoses include but not limited to dehydration, hyperglycemia, diabetes, hyponatremia, acute renal failure, urinary tract infection Initial plan: EKG Labs ED Urine Dipstick Normal Saline 500 mL IV IV Insertion Reevaluation 1700 Pt reported depression on reeval. 1840 Crisis evaluated the patient and pt is cleared for discharge. Scribe Attestation: Documented by Albina Solano, acting as a scribe for Cirstian Coy MD. Provider Scribe Attestation: All medical record entries made by the Scribe were at my direction and personally dictated by me. I have reviewed the chart and agree that the record accurately reflects my personal performance of the history, physical exam, medical decision making, and the department course for this patient. I have also personally directed, reviewed, and agree with the discharge instructions and disposition. Disposition - Clinical Impression Clinical Impression: Generalized weakness, Dry mouth, Depression - Patient ED Disposition Is Patient to be Admitted: No Doctor Will See Patient In The: Office Counseled Patient/Family Regarding: Studies Performed, Diagnosis - Disposition Referrals: [facility] [Outside] [facility] [Outside] Disposition: Routine/Home Disposition Time: 15:27 Condition: GOOD Additional Instructions: Follow up with your PCP in 2-3 days. Instructions: Depression (ED), Weakness (ED)
[2017-01-23 14:29] LABS: BASO # 0.1 K/uL (0.0-0.2); BASO % 0.7 % (0.0-2.0); EOS # 0.1 K/uL (0.0-0.7); EOS % 0.6 % (0.0-4.0); HEMATOCRIT 37.6 % (34.0-47.0); LYMPH # 1.8 K/uL (1.0-4.3); MEAN CORPUSCULAR HEMOGLOBIN 23.4 pg (27.0-31.0); MEAN PLATELET VOLUME 9.6 fl (7.2-11.7); MONO # 0.7 K/uL (0.0-0.8); MONO % 8.1 % (0.0-10.0); NEUT # 6.5 K/uL (1.8-7.0); NEUT % 70.6 % (50.0-75.0); NRBC % 0.1 % (0.0-0.0); RED CELL DISTRIBUTION WIDTH 15.4 % (11.5-14.5); WHITE BLOOD COUNT 9.1 K/uL (4.8-10.8)
[2017-01-23 15:01] LABS: BLOOD UREA NITROGEN 32 mg/dl (7-17); CALCIUM 10.2 mg/dL (8.4-10.2); CARBON DIOXIDE 23 mmol/L (22-30); CHLORIDE 105 mmol/L (98-107); GFR AFRICAN-AMERICAN > 60; GLUCOSE,RANDOM 113 mg/dL (65-105); SODIUM 140 mmol/l (132-148)
[2017-01-23 15:10] LABS: POTASSIUM 5.1 MMOL/L (3.6-5.0)
[2017-01-23 16:01] VITALS: BP 142/74
[2017-01-23 18:39] VITALS: PULSE 61; O2SAT 98
--- NOTE | 2017-01-24 08:33 | CARD ---
APPROVED REPORT EKG Measurement Heart [id number] ID [id number] <Conclusion> Normal sinus rhythm Left axis deviation Cannot rule out Septal infarct, age undetermined Abnormal ECG
== END 2017-01-23 19:34 | disposition home or self-care (01) ==
LOC: H.ER 12:52
DX: M62.81 Muscle weakness (generalized) (principal); F32.9 Major depressive disorder, single episode, unspecified; R68.2 Dry mouth, unspecified; E11.65 Type 2 diabetes mellitus with hyperglycemia; I10 Essential (primary) hypertension
CPT/HCPCS: 80048; 82948; 84484; 85025; 93005; 99284; J7040